=== PATIENT | female | born 1985 | race Caucasian/White ===

== ENCOUNTER → 2016-06-28 | Outpatient (CLI) | payer SELFPAY | LOC: YCFC.O 11:55 | PROVIDERS: ATTEND Nurse Practitioner Family | DX: D50.9 Iron deficiency anemia, unspecified (principal) ==

== ENCOUNTER 2016-12-10 18:10 | Emergency (ER) | payer SELFPAY ==
[2016-12-10] MEDS ORDERED: SULFA/TRIMETH 800/160 (DS) TAB 1 EA TAB PO ONE (18:37)
--- NOTE | 2016-12-10 18:42 | ED.PDOC ---
History of Present Illness - General Chief Complaint: Lower Extremity Injury Time Seen by Provider: 12/10/16 18:37 Source: patient Exam Limitations: no limitations - History of Present Illness Initial Comments: the patient is a 31-year-old female presenting to the emergency room secondary to a nail puncture wound to the dorsum of her left foot between the distal aspects of her second and third metatarsals. It was an accidental puncture wound while walking her dog. The patient has been ambulatory since. It occurred approximately 30 minutes prior to arrival. She is neurovascularly preserved. She is able to move the toes without difficulty. Other than swelling there is no deformity. Mild bruising at the site. Entry wound is approximately 2 mm in diameter. Her last tetanus shot was less than 3 years ago. She denies any allergies. Timing/Duration: momentarily Severity: moderate Improving Factors: nothing Worsening Factors: nothing Associated Symptoms: denies symptoms Allergies/Adverse Reactions: Allergies NO KNOWN ALLERGY Allergy (Verified 12/10/16 18:48) Home Medications: Ambulatory Orders Sulfa/Trimeth 800/160 (Ds) Tab [Bactrim DS Tab] 1 ea PO BID #6 tab 12/10/16 Review of Systems - Review of Systems Constitutional: States: no symptoms reported EENTM: States: no symptoms reported Respiratory: States: no symptoms reported Cardiology: States: no symptoms reported Gastrointestinal/Abdominal: States: no symptoms reported Genitourinary: States: no symptoms reported Musculoskeletal: States: see HPI Skin: States: see HPI Neurological: States: no symptoms reported Endocrine: States: no symptoms reported All other Systems: No Change from Baseline Physical Exam - Physical Exam General Appearance: Alert, Comfortable, No apparent distress Eye Exam: bilateral normal Ears, Nose, Throat: hearing grossly normal Neck: full range of motion Respiratory: no respiratory distress, no accessory muscle use Cardiovascular/Chest: normal peripheral pulses, no edema Peripheral Pulses: dorsalis pedis,right: 2+, dorsalis pedis,left: 2+, posterior tibialis,right: 2+, posterior tibialis,left: 2+ Extremity: normal range of motion, no pedal edema, no calf tenderness, normal capillary refill 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 The wound was irrigated with 250 cc of sterile saline. Antibiotic ointment and Band-Aid were applied. The patient was given a dose of Bactrim. She'll be placed on Bactrim twice daily for the next 3 days. ER warnings were given for any sign of infection. No evidence of fracture was seen on x-ray. Departure - Departure Clinical Impression: Puncture wound of foot Qualifiers: Encounter type: initial encounter Laterality: left Qualified Code(s): S91.332A - Puncture wound without foreign body, left foot, initial encounter Disposition: Discharge to Home or Self Care Condition: Fair Departure Forms: ED Discharge - Pt. Copy, Patient Portal Self Enrollment Instructions: DI for Puncture Wound Diet: regular diet Activity: increase activity as tolerated Referrals: Tavia Santana NP [Primary Care Provider] - 1-2 Weeks Prescriptions: Sulfa/Trimeth 800/160 (Ds) Tab [Bactrim DS Tab] 1 ea PO BID #6 tab Home Medications: Ambulatory Orders Sulfa/Trimeth 800/160 (Ds) Tab [Bactrim DS Tab] 1 ea PO BID #6 tab 12/10/16 Additional Instructions: the patient is a 31-year-old female with a puncture wound from a nail to the dorsal aspect of her left foot. The wound was irrigated with 250 cc of sterile saline. Antibiotic ointment and Band-Aid were applied. The patient was given a dose of Bactrim. She'll be placed on Bactrim twice daily for the next 3 days. ER warnings were given for any sign of infection. No evidence of fracture was seen on x-ray.
[2016-12-10 18:51] VITALS: BP 116/79; TEMP 98.1; O2SAT 99
--- NOTE | 2016-12-10 19:43 | RAD ---
EXAM DESCRIPTION: Foot,Left 2 Views CLINICAL HISTORY: 31 years, Female, nail wound to distal 2nd 3rd metatarsals COMPARISON: None. FINDINGS: Two views of the LEFT foot were performed. No radiopaque foreign body is identified. There is some soft tissue swelling along the plantar aspect of the forefoot. No radiopaque foreign body. Bone mineralization is within normal limits. No fracture is identified. Bony alignment is maintained. No suspicious calcification is detected. IMPRESSION: LEFT plantar soft tissue injury without radiopaque foreign body or bony injury. Electronically signed by: Rosemary Bland MD 12/10/2016 7:42 PM CDT
== END 2016-12-10 19:15 | disposition home or self-care (01) ==
LOC: ER 18:10
DX: S91.332A Puncture wound without foreign body, left foot, initial encounter (principal); W45.0XXA Nail entering through skin, initial encounter; Y93.K1 Activity, walking an animal; Y92.9 Unspecified place or not applicable

== ENCOUNTER 2016-12-19 13:20 | Emergency (ER) | payer SELFPAY ==
--- NOTE | 2016-12-19 14:35 | ED.PDOC ---
History of Present Illness - General Chief Complaint: General Stated Complaint: Reports of low blood sugars Time Seen by Provider: 12/19/16 13:57 Source: patient Exam Limitations: no limitations - History of Present Illness Initial Comments: Patient presents complaining of low blood sugars. She has a glucometer at home that a doctor in [place] told her to start using last year because she was worried about her blood sugars. She says that she has gotten several "low" readings and says that the lowest has been 25. She says that if she gets less than 60 then she has to drink juice or eat quickly. She has had episodes of light-headedness but no LOC. Says she eats three meals per day plus many snacks. She also states that she drinks fluids constantly throughout the day and urinates once per hour. Occasional nausea but no vomiting. No other complaints. Timing/Duration: changing over time Severity: moderate Improving Factors: nothing Worsening Factors: nothing Associated Symptoms: weakness Allergies/Adverse Reactions: Allergies NO KNOWN ALLERGY Allergy (Verified 12/19/16 14:29) Home Medications: Ambulatory Orders cloNAZepam [KlonoPIN] 0.25 mg PO BEDTIME 12/19/16 Review of Systems - Review of Systems Constitutional: States: weakness EENTM: States: no symptoms reported Respiratory: States: no symptoms reported Cardiology: States: no symptoms reported Gastrointestinal/Abdominal: States: no symptoms reported Genitourinary: States: see HPI Musculoskeletal: States: no symptoms reported Skin: States: no symptoms reported Neurological: States: see HPI Endocrine: States: see HPI Hematologic/Lymphatic: States: no symptoms reported Past Medical History (General) - Patient Medical History Hx Seizures: No Hx Stroke: No Hx Dementia: No Hx Asthma: Yes Hx of COPD: No Hx Cardiac Disorders: No Hx Congestive Heart Failure: No Hx Pacemaker: No Hx Hypertension: No Hx Thyroid Disease: No Hx Diabetes: No Hx Gastroesophageal Reflux: Yes Hx Renal Disease: No Hx Cancer: No Hx of HIV: No Hx Hepatitis C: No Hx MRSA: No - Vaccination History Hx Tetanus, Diphtheria Vaccination: Yes Hx Influenza Vaccination: No Hx Pneumococcal Vaccination: No - Social History Hx Tobacco Use: No Hx Chewing Tobacco Use: No Hx Alcohol Use: No Hx Substance Use: No Hx Substance Use Treatment: No Hx Depression: No Hx Physical Abuse: No Hx Emotional Abuse: No Hx Suspected Abuse: No - Female History Patient is a Female of Child Bearing Age (10 -59 yrs old): Yes Patient : No Family Medical History - Family History Mother Living Status: Still Living Hx Family Hypertension: Yes Hx Family Stroke: Yes Physical Exam - Physical Exam General Appearance: Alert Eye Exam: bilateral normal Ears, Nose, Throat: normal ENT inspection Neck: non-tender, full range of motion, supple Respiratory: chest non-tender, lungs clear, normal breath sounds Cardiovascular/Chest: normal peripheral pulses, regular rate, rhythm Gastrointestinal/Abdominal: normal bowel sounds, non tender, soft Back Exam: normal inspection, no CVA tenderness Extremity: normal range of motion, non-tender, normal inspection Neurologic: replenisher II-XII nml as tested, no motor/sensory deficits, alert, normal mood/affect, oriented x 3 Skin Exam: normal color Lymphatic: no adenopathy Progress - Progress Progress: 12/19/16 16:51 Hb 8.3 Hb A1C 5.1 Patient was worried about being at home with both the increasing anemia and the hypoglycemia. [facility] accepted patient for transfer and patient elected to go by private vehicle. Laboratory Tests 12/19/16 12/19/16 12/19/16 14:29 14:29 14:30 WBC 6.0 RBC 4.07 L Hgb 8.6 L Hct 28.2 L MCV 69.2 L MCH 21.1 L MCHC 30.7 L RDW 17.4 H Plt Count 361 MPV 6.6 L Absolute Neuts (auto) 2.90 Absolute Lymphs (auto) 2.50 Absolute Monos (auto) 0.40 Absolute Eos (auto) 0.20 Absolute Basos (auto) 0.10 Neutrophils % 47.8 Lymphocytes % 41.6 Monocytes % 6.1 Eosinophils % 3.4 Basophils % 1.1 Normal RBC Morphology Plts marisol adequate Sodium 139 Potassium 4.0 Chloride 105 Carbon Dioxide 27 Anion Gap 11.0 L BUN 12 Creatinine 0.58 L BUN/Creatinine Ratio 20.7 H Random Glucose 86 Hemoglobin A1c Serum Osmolality 276.6 Calcium 9.5 Total Bilirubin 0.6 AST 17 ALT 17 Alkaline Phosphatase 48 Serum Total Protein 7.5 Albumin 4.3 Globulin 3.2 Albumin/Globulin Ratio 1.3 TSH 1.29 Thyroxine (T4) 8.01 Urine Color Urine Appearance Urine pH Ur Specific [place] Urine Protein Urine Glucose (UA) Urine Ketones Urine Blood Urine Nitrite Urine Bilirubin Urine Urobilinogen Ur Leukocyte Esterase Urine RBC Urine WBC Ur Epithelial Cells Urine Bacteria 12/19/16 12/19/16 14:30 15:10 WBC RBC Hgb Hct MCV MCH MCHC RDW Plt Count MPV Absolute Neuts (auto) Absolute Lymphs (auto) Absolute Monos (auto) Absolute Eos (auto) Absolute Basos (auto) Neutrophils % Lymphocytes % Monocytes % Eosinophils % Basophils % Normal RBC Morphology Sodium Potassium Chloride Carbon Dioxide Anion Gap BUN Creatinine BUN/Creatinine Ratio Random Glucose Hemoglobin A1c 5.1 Serum Osmolality Calcium Total Bilirubin AST ALT Alkaline Phosphatase Serum Total Protein Albumin Globulin Albumin/Globulin Ratio TSH Thyroxine (T4) Urine Color Yellow Urine Appearance Sl cloudy Urine pH 7.0 Ur Specific [place] 1.015 Urine Protein Negative Urine Glucose (UA) Negative Urine Ketones Negative Urine Blood Moderate H Urine Nitrite Negative Urine Bilirubin Negative Urine Urobilinogen 0.2 Ur Leukocyte Esterase Negative Urine RBC 0-1 Urine WBC 0 Ur Epithelial Cells 0-1 Urine Bacteria 0 Departure - Departure Clinical Impression: Anemia, Light headedness, Multiple episodes of hypoglycemia Disposition: Transfer to Hospital Condition: Good Departure Forms: ED Discharge - Pt. Copy, Patient Portal Self Enrollment Diet: resume usual diet Activity: increase activity as tolerated Referrals: Tavia Santana NP [Primary Care Provider] - 1-2 Weeks Home Medications: Ambulatory Orders cloNAZepam [KlonoPIN] 0.25 mg PO BEDTIME 12/19/16 Additional Instructions: You have elected to transfer to [facility] in [place] by private vehicle. Go to the admissions desk at the [facility] and present your paperwork.
[2016-12-19 18:33] VITALS: BP 123/83; TEMP 97.4; O2SAT 97
== END 2016-12-19 18:00 | disposition short-term general hospital (02) ==
LOC: ER 13:20
DX: E16.2 Hypoglycemia, unspecified (principal); D64.9 Anemia, unspecified; R42 Dizziness and giddiness; K21.9 Gastro-esophageal reflux disease without esophagitis; J45.909 Unspecified asthma, uncomplicated

== ENCOUNTER → 2017-06-19 | Outpatient (CLI) | payer SELFPAY | END | disposition home or self-care (01) | LOC: YCFC.O 11:59 | PROVIDERS: ATTEND Nurse Practitioner Family | DX: R50.9 Fever, unspecified (principal) ==

== ENCOUNTER 2018-12-10 02:44 | Emergency (ER) | payer OTHER ==
[2018-12-10 03:46] VITALS: O2SAT 100
--- NOTE | 2018-12-10 03:47 | ED.PDOC ---
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 Complaint: vaginal bleeding Time Seen by Provider: 12/10/18 03:38 Source: patient Exam Limitations: no limitations - History of Present Illness Initial Comments: Suzanne Weiss 33 y/o female [id number] with LMP-16 Oct 2018p;8 wks EGA;CAT 23 Jul 2019 came to er with history of vaginal spotting 3 days ago and today had bright red blood / vagina.She was seen at [facility] for vaginal spotting at 4 weeks EGA and had OB-sono done showing IUP and subchorionic hemorrhage.Had seen OB and scheduled for sono on 12 December 2018 Timing/Duration: this evening Quality: mild, cramping, intermittent Onset Location: other - lower abdomen Radiation: none Activites at Onset: none Prior abdominal problems: similar symptoms Sexual intercourse history: single partner Improving Factors: nothing Worsening Factors: nothing Associated Symptoms: other - see hpi Allergies/Adverse Reactions: Allergies NO KNOWN ALLERGY Allergy (Verified 12/19/16 14:29) Home Medications: Ambulatory Orders Citalopram Hydrobromide [Citalopram] 10 mg PO DAILY 12/10/18 Multivit-Min W/Fe-FA [ and Iron] 1 tab PO DAILY 12/10/18 Review of Systems - Review of Systems Gastrointestinal/Abdominal: States: see HPI Genitourinary: States: see HPI All other Systems: Reviewed and Negative, No Change from Baseline Past Medical History (General) - Patient Medical History Hx Seizures: No Hx Stroke: No Hx Dementia: No Hx Asthma: Yes Hx of COPD: No Hx Cardiac Disorders: No Hx Congestive Heart Failure: No Hx Pacemaker: No Hx Hypertension: No Hx Thyroid Disease: No Hx Diabetes: No Hx Gastroesophageal Reflux: Yes Hx Renal Disease: No Hx Cancer: No Hx of HIV: No Hx Hepatitis C: No Hx MRSA: No Surgical History: other - hysteroscopy,polypectomy;D&C - Vaccination History Hx Tetanus, Diphtheria Vaccination: Yes Hx Influenza Vaccination: No Hx Pneumococcal Vaccination: No - Social History Hx Tobacco Use: No Hx Chewing Tobacco Use: No Hx Alcohol Use: No Hx Substance Use: No Hx Substance Use Treatment: No Hx Depression: No Hx Physical Abuse: No Hx Emotional Abuse: No Hx Suspected Abuse: No - Female History Hx Last Menstrual Period: 02/06/17 - on OCP Patient : No Family Medical History - Family History Mother Living Status: Still Living Hx Family Hypertension: Yes Hx Family Stroke: Yes Physical Exam - Physical Exam General Appearance: Alert, Comfortable, No apparent distress Eyes, Ears, Nose, Throat Exam: normal ENT inspection Neck: supple Cardiovascular/Respiratory: regular rate, rhythm, normal peripheral pulses, normal breath sounds Gastrointestinal/Abdominal: soft, tenderness - lower abdomen no peritoneal signs Back Exam: no CVA tenderness, no vertebral tenderness Extremity: no pedal edema, no calf tenderness Neurologic: alert, oriented x 3 Skin Exam: normal color, warm/dry Progress - Progress Progress: 12/10/18 03:50 Vital Signs - 24 hr 12/10/18 03:42 Temperature 98.6 F Pulse Rate [ 84 Left] Respiratory 18 Rate Blood Pressure 121/78 [Right Arm] O2 Sat by Pulse 100 Oximetry - Results/Orders Results/Orders: Laboratory Results - last 24 hr 12/10/18 12/10/18 12/10/18 03:47 03:47 03:47 WBC 10.9 H RBC 4.20 Hgb 13.5 Hct 39.1 MCV 93.0 MCH 32.2 H MCHC 34.6 RDW 12.8 Plt Count 289 MPV 7.1 L Absolute Neuts (auto) 6.40 Absolute Lymphs (auto) 3.20 Absolute Monos (auto) 0.80 Absolute Eos (auto) 0.40 Absolute Basos (auto) 0.10 Neutrophils % 58.7 Lymphocytes % 29.7 Monocytes % 7.1 Eosinophils % 3.6 Basophils % 0.9 Beta HCG, Quant 56657.0 H Patient ABO/Rh O POSITIVE Departure - Departure Clinical Impression: Threatened in first trimester Time of Disposition: 05:07 Disposition: Discharge to Home or Self Care Departure Forms: ED Discharge - Pt. Copy, Patient Portal Self Enrollment Instructions: DI for Threatened Referrals: Alexander Benton MD [Primary Care Provider] - 1-2 Weeks Home Medications: Ambulatory Orders Citalopram Hydrobromide [Citalopram] 10 mg PO DAILY 12/10/18 Multivit-Min W/Fe-FA [ and Iron] 1 tab PO DAILY 12/10/18 Additional Instructions: NEED TO CALL UP YOUR PARKING INSPECTOR TODAY 10 DECEMBER 2018
[2018-12-10] MEDS ORDERED: LACTATED RINGERS 1,000 ML IVS ONE (03:51)
[2018-12-10] MEDS ORDERED: HYDROCOD/APAP 7.5/325 (ER DISP) #3 TAB PO ONE (05:11)
[2018-12-10 05:23] VITALS: BP 136/82; TEMP 98.2
== END 2018-12-10 05:18 | disposition home or self-care (01) ==
LOC: ER 02:44
DX: O20.0 Threatened abortion (principal); O99.511 Diseases of the respiratory system complicating pregnancy, first trimester; J45.909 Unspecified asthma, uncomplicated; O99.611 Diseases of the digestive system complicating pregnancy, first trimester; K21.9 Gastro-esophageal reflux disease without esophagitis; Z3A.08 8 weeks gestation of pregnancy
CPT/HCPCS: 84702; 85025; 86901; J7120